=== PATIENT | female | born 1985 | race Caucasian/White ===

== ENCOUNTER 2024-10-11 07:36 | Outpatient (OUT) | payer BC, SELFPAY ==
--- NOTE | 2024-10-11 07:40 | MR_ITS ---
[facility] [id number] Patient Name: DEA BURGESS MRN: [id number] date: 1985 Sex: F Assigned Patient Location: MRI Current Patient Location: LAB Accession/Order Number: [id number] Exam Date: 10/11/2024 10:31 Report Date: 10/11/2024 10:35 At the request of: CARON LIRIANO DO Procedure: MR lumbar spine wo con EXAMINATION: MRI LUMBAR SPINE WITHOUT IV CONTRAST CLINICAL HISTORY: Back pain since 2005 radiating into right leg and foot. COMPARISON: None TECHNIQUE: Multiecho imaging was performed in the sagittal and axial planes without contrast administration. FINDINGS: Vertebral body heights appear maintained. No bone marrow edema. Spinal cord terminates in normal position without abnormal cord signal. No paraspinal mass. Visualized retroperitoneum demonstrates no acute findings. There appears to be follicular changes involving the visualized ovaries. At L1-L2: No posterior disc pathology. No neural canal or foraminal stenosis. At L2-L3: Mild diffuse broad-based disc bulge with facet joint degenerative changes and ligamentum flavum hypertrophy causing mild canal and bilateral neural foraminal stenosis. At L3-L4: Mild diffuse broad-based disc bulge is present with ligamentum flavum hypertrophy and facet joint degenerative changes causing mild canal and bilateral neural foraminal stenosis. At L4-L5: Diffuse broad-based disc bulge is present with central protrusion type disc herniation present as well as ligamentum flavum hypertrophy and facet joint degenerative changes causing severe canal and mild bilateral neural foraminal stenosis. At L5-S1: No posterior disc pathology. No neural canal or foraminal stenosis. MR/MR lumbar spine wo con IMPRESSION: Multilevel degenerative disc disease as described above, worst at L4-L5 with central protrusion type disc herniation present causing severe canal stenosis. Impression dictated by: Giuliano Alfred Jr., D.O. 10/11/2024 10:35 AM Dictation Location: [facility]OSPITALKeyOn Communications Holdings Electronically authenticated by: [id number] Y Date: 10/11/2024 10:35
== END 2024-10-11 07:37 | disposition home or self-care (01) ==
LOC: MRI 07:36
PROVIDERS: PCP Family Medicine; Visit Provider Family Medicine
DX: Z00.01 Encounter for general adult medical examination with abnormal findings (principal); M54.16 Radiculopathy, lumbar region; M51.369 Other intervertebral disc degeneration, lumbar region without mention of lumbar back pain or lower extremity pain; M51.26 Other intervertebral disc displacement, lumbar region
CPT/HCPCS: 36415; 72148; 80053; 80061; 82306; 82607; 82728; 82746; 83036; 83540; 83550; 83735; 84439; 84443; 84481; 85025; 86038

== ENCOUNTER 2024-10-11 08:29 | Outpatient (OUT) | payer BC, SELFPAY ==
[2024-10-11 09:26] LABS: Basophils Absolute Auto 0.1 10^3/uL (0.0-0.1); Basophils Percent Auto 0.8 % (0.2-2.0); Eosinophils Absolute Auto 0.3 10^3/uL (0.0-0.7); Eosinophils Percent Auto 4.5 % (0.9-7.0); Hematocrit 42.7 % (36.0-48.0); Hemoglobin 14.4 g/dL (12.0-16.0); Immature Granulocytes Abs Auto 0.03 10^3/uL (0.00-0.03); Immature Granulocytes Pct Auto 0.4 % (0.0-0.5); Lymphocytes Absolute Auto 2.3 10^3/uL (1.2-3.8); Lymphocytes Percent Auto 31.5 % (20.5-60.0); Mean Corpuscular HGB Conc 33.7 g/dL (29.9-35.2); Mean Corpuscular Hemoglobin 31.1 pg (26.7-34.0); Mean Corpuscular Volume 92.2 fL (81.0-99.0); Mean Platelet Volume 10.5 fL (9.5-13.5); Monocytes Absolute Auto 0.4 10^3/uL (0.3-0.8); Monocytes Percent Auto 5.7 % (1.7-12.0); Neutrophils Absolute Auto 4.2 10^3/uL (1.4-6.5); Neutrophils Percent Auto 57.1 % (43.0-75.0); Platelet Count 184 10^3/uL (150-450); Red Blood Count 4.63 10^6/uL (4.20-5.40); Red Cell Distribution Width 12.3 % (11.0-15.0); White Blood Count 7.3 10^3/uL (4.0-11.0)
[2024-10-11 09:56] LABS: Estimated Average Glucose 103 mg/dL; Glycohemoglobin A1C 5.2 % (4.5-6.2)
[2024-10-11 10:00] LABS: Percent Iron Saturation 39.5 %
[2024-10-11 10:07] LABS: Alanine Aminotransferase 61 U/L (14-59); Albumin Globulin Ratio 0.9; Albumin Level 3.5 g/dL (3.4-5.0); Alkaline Phosphatase 64 U/L (46-116); Aspartate Amino Transferase 45 U/L (15-37); Bilirubin Total 0.4 mg/dL (0.2-1.0); Calcium 8.7 mg/dL (8.5-10.1); Carbon Dioxide 26.8 mmol/L (21.0-32.0); Chloride 104 mmol/L (98-107); Chol HDL Ratio 2.1; Cholesterol 137 mg/dL (<=200); Estimated GFR (African America >60 (>=60 mL/min/1.73m^2); Estimated GFR (Non-African Ame >60 (>=60 mL/min/1.73m^2); Free T3 2.43 pg/mL (2.18-3.98); Globulin 3.8 g/dL; Glucose 92 mg/dL (74-106); HDL Cholesterol 66 mg/dL (40-60); Potassium 3.8 mmol/L (3.5-5.1); Sodium 138 mmol/L (136-145); Thyroid Stimulating Hormone 4.179 uIU/mL (0.358-3.740); Total Protein 7.3 g/dL (6.4-8.2); Triglycerides 48 mg/dL (<=150); VLDL CHOLESTEROL 9.6 mg/dL
[2024-10-11 10:26] LABS: Free T4 0.82 ng/dL (0.76-1.46)
[2024-10-12 06:12] LABS: Vitamin B12 342 pg/mL (232-1245)
[2024-10-12 11:13] LABS: ANA Direct Negative (Negative)
== END 2024-10-11 08:30 | disposition home or self-care (01) ==
LOC: LAB 08:30
PROVIDERS: PCP Family Medicine; Visit Provider Family Medicine
DX: Z00.01 Encounter for general adult medical examination with abnormal findings (principal)
CPT/HCPCS: 36415; 80053; 80061; 80074; 82306; 82607; 82728; 82746; 83036; 83540; 83550; 83735; 84439; 84443; 84481; 85025; 86038; 87389; 87522

== ENCOUNTER 2024-10-18 09:02 | Outpatient (OUT) | payer BC, SELFPAY ==
[2024-10-19 05:07] LABS: HIV Ab/p24 Ag Screen Non Reactive (Non Reactive)
[2024-10-20 22:07] LABS: HBsAg Screen Negative (Negative); HCV Ab Reactive (Non Reactive); HCV RNA (International Units) 14800000 IU/mL (.); Hep A Ab, IgM Negative (Negative); Hep B Core Ab, IgM Negative (Negative)
== END 2024-10-18 09:03 | disposition home or self-care (01) ==
LOC: LAB 09:02
PROVIDERS: PCP Family Medicine; Visit Provider Family Medicine
DX: Z00.01 Encounter for general adult medical examination with abnormal findings (principal)
CPT/HCPCS: 36415; 80074; 87389; 87522

== ENCOUNTER 2025-05-06 09:08 | Outpatient (OUT) | payer BC, SELFPAY ==
--- OUTSIDE RECORDS SUMMARY | 2020-04-24 05:15 | XMS_ITS | Continuity of Care Document ---
Author Organization [facility] Address [address] [place] [address] Phone Care Team Providers Care Automatic Coil Machine Operator Name Role Phone Martin Josue Unavailable Unavailable Procedures Procedure Date Covid Testing [facility] Advance Directives Directive Yes / No Effective Date File Name No Information Encounters Encounter Description Practice Location Reason(s) For Visit Diagnoses Date Provider Providers Copied on Encounter [facility], [address], [place], [id number], [place] tel:[phone] COVID [facility] No Information Laxmi SWANN Martin. [address], [place], [id number], [place]. tel:[phone] Family History Family Member Type Diagnosis Age At Onset No Information Payers Payer name Insurance type Covered constitution party ID Authoriza tion(s) No Information Social History Type Description Quantity Date Captured Comments Sex Female Smoking Status No Information Sexual Orientation Straight or heterosexual Gender Identity Female Chief Complaint And Reason For Visit No Information Reason For Referral Reason For Referral No Information History Of Present Illness Encounter Date Complaint History Of Prese nt Illness No Information Functional Status Date Functional Assessmen t No Information Instructions Date Instruction Additional Infor mation No Information Assessments Type Assessment Date No Information Patient Care Teams Name Effective Dates (start - stop) Status Members No Information
--- OUTSIDE RECORDS SUMMARY | 2024-09-09 05:00 | XMS_ITS ---
Author Organization [facility] [place] Address [address] [place] [address] Care Team Providers Care Image Consultant Name Role Phone Omer Melchor Primary Care Provider REASON FOR VISIT establish care Encounters Encounter Location Date Provider Diagnosis [facility] [address] [place] [address] 09/09/2024 Omer Melchor Plan Of Treatment Next Appt Details Provider Name:Shanice Fritz Bandar llamas, 05/10/2025 10:15:00 AM, [address] [place], [address], Progress Notes * Aundrea BURGESSDOB: [birth year] (39 yo F)Acc No.[id number]:09/09/2024 UNLOCKED PROGRESS NOTE New Patient Patient: Joaquín Aundrea FOSTER :?Omer Melchor DODOB:1985???Age:39 Y ???Sex:FemaleDate:09/09/2024Phone:[phone]:[address] [place], [place]-[address] Subjective: * Chief Complaints: * 1 . Establish care. * Medical History: Objective: * Vitals: Assessment: Plan: * Treatment: * * Electronic signature of Omer Melchor DO, [id number] on 05/06/2025 at 09:11 AM ESTSign off status: PendingVisit Status:?R/S (Rescheduled) * Provider: Ashli Melchor, DO Date: 0 09/09/2024 Generated for Printing/Faxing/eTransmitting on:?05/06/2025 09:11 AM EST
--- OUTSIDE RECORDS SUMMARY | 2024-09-16 03:45 | XMS_ITS ---
Author Organization [facility] [place] Address [address] [place] [address] Care Team Providers Care Complaint Investigations Officer Name Role Phone Omer Melchor Primary Care Provider REASON FOR VISIT New patient Encounters Encounter Location Date Provider Diagnosis [facility] [address] [place] [address] 09/16/2024 Omer Melchor Plan Of Treatment Next Appt Details Provider Name:Shanice Fritz Bandar llamas, 05/10/2025 10:15:00 AM, [address] [place], [address], Progress Notes * Aundrea BURGESSDOB: [birth year] (39 yo F)Acc No.[id number]:09/16/2024 UNLOCKED PROGRESS NOTE New Patient Patient: Joaquín Aundrea FOSTER :?Omer Melchor DODOB:1985???Age:39 Y ???Sex:FemaleDate:09/16/2024Phone:[phone]:[address] [place], [place] Subjective: * Chief Complaints: * 1 . New patient. * Medical History: Objective: * Vitals: Assessment: Plan: * Treatment: * * Electronic signature of Omer Melchor DO, [id number] on 05/06/2025 at 09:11 AM ESTSign off status: PendingVisit Status:?R/S (Rescheduled) * Provider: Ashli Melchor, DO Date: 0 09/16/2024 Generated for Printing/Faxing/eTransmitting on:?05/06/2025 09:11 AM EST
--- OUTSIDE RECORDS SUMMARY | 2025-04-22 03:45 | XMS_ITS ---
Author Organization The [facility] in [place] Address [address] [place] [address] Care Team Providers Care Case Management Social Worker Name Role Phone Omer Melchor Primary Care Provider [phone] Allergies Allergen (clinical drug ingredient) Drug/Non Drug Allergy documented on EMR Reaction Allergy Type Onset Date Status bandage adhesive (uncoded)UnknownAllergyActive Reason For Referral Reason L DDD lumbar herni ated disc lumbar spinal stenosis Diagnosis 1 Spinal stenosis, lum bar region without neurogenic claudication (M48.061) Referral Organization [facility] Referring Provider First Name Omer Referring Provider Last Name Ruiz Referring Provider Speciality Family Med juani Referred Provider [facility] Referred Provider Specialty Neurosurgery General Notes Omer Melchor 09:13:54 PM >please call pt for appt Referral Priority Routine REASON FOR VISIT -6 Month Follow Up- Medications Medication SIG (Take, Route, Frequency, Duration) Notes Start Date End Date Status Albuterol Sulfate HFA 108 (9 0 Base) MCG/ACT INHALE 1 PUFF BY MOUTH EVERY 4 HOURS NEEDED; Duration: 33 days ActiveEpclusa 400-100 MGOralActiveFolic Acid 1 MG1 tablet Orally Once a day 5ActiveVitamin D3 125 MCG (5000 UT)1 capsule Orally Once a day; Duration: 90 days5Active Social History Tobacco Use: Social History Observation Description Date Details (start date - stop date) Current Smoker NA - NA Tobacco Control (Standard) Question Answer Notes Tobacco use: Current smoker Problems Problem Type SNOMED Code ICD Code Onset Dates Problem Status W/U Status Risk Notes Problem Obesity (555702319) Obesity, unspecified (E66.9) ActiveconfirmedProblemBody mass index 30+ - obesity (726542776)Body mass index [BMI] 30.0-30.9, adult (Z68.30)ActiveconfirmedProblemMild major depression, single episode (40654939)Major depressive disorder, single episode, mild (F32.0) ActiveconfirmedProblemAcute hepatitis C (681916255)Acute hepatitis C without hepatic coma (B17.10)ActiveconfirmedProblemSpinal stenosis of lumbar region (75351186)Spinal stenosis, lumbar region without neurogenic claudication (M48.061)Activeconfirmed Vital Signs Blood pressure systolic 112 mm Hg 04/22/20 25 Blood pressure diastolic 82 mm Hg 025 Heart Rate 69 /min 04/22/2025 Respiratory Rate 16 /min 04/22/2025 Height 64 in 04/22/2025 Weight 179.4 lbs 04/22/2025 BMI 30.79 kg/m2 04/22/2025 Oximetry 98 % 04/22/2025 Encounters Encounter Location Date Provider Diagnosis [address] [address] 04/22/2025 Omer Melchor Vitamin D deficiency , unspecified E55.9 ; Deficiency of other specified B group vitamins E53.8 ; Chronic fatigue, unspecified R53.82 ; Obesity, unspecified E66.9 ; Body mass index [BMI] 30.0-30.9, adult Z68.30 ; Major depressive disorder, single episode, mild F32.0 ; Other specified abnormal findings of blood chemistry R79.89 ; Acute hepatitis C without hepatic coma B17.10 ; Encounter for screening mammogram for malignant neoplasm of breast Z12.31 ; Melanocytic nevi, unspecified D22.9 and Spinal stenosis, lumbar region without neurogenic claudication M48.061 Assessments Encounter Date Diagnosis (ICD Code) Assessment Notes Treatment Notes Treatment Clinical Notes Section Notes 04/22/2025 Vitamin D deficiency, unspecifie d (ICD-10 - E55.9) monior vit D change to vit D 5000 IU daily instead of qweek per pt request 04/22/2025Deficiency of other specified B group vitamins (ICD-10 - E53.8) monitor lab stable 04/22/2025hronic fatigue, unspecified (ICD-10 - R53.82)labs - tx if abnormal 04/22/2025Obesity, unspecified (ICD-10 - E66.9)diet/rrfgykeh08/14/2025ody mass index [BMI] 30.0-30.9, adult (ICD-10 - Z68.30)04/22/2025Major depressive disorder, single episode, mild (ICD-10 - F32.0) rec counseling rec wellbutrin - pt to hold off 04/22/2025Other specified abnormal findings of blood chemistry (ICD-10 - R79.89) monitor thyroid labs - hold on med if FT 3/4 cmfjwt7504/22/2025ute hepatitis C without hepatic coma (ICD-10 - B17.10) f/u GI as directed [place] [facility] [place]25Encounter for screening mammogram for malignant neoplasm of breast (ICD-10 - Z12.31)04/22/2025Melanocytic nevi, unspecified (ICD-10 - D22.9)monitor as ngcpgd0704/22/2025Spinal stenosis, lumbar region without neurogenic claudication (ICD-10 - M48.061) refer for eval and tx ?PT/injections/surgery 04/22/2025Otherpt to make appt with dr lincoln for pap Plan Of Treatment Medication Medication Name Sig Start Date Stop Date Notes Vitamin D (Ergocalciferol) 1.25 MG (46344 UT) 1 capsul e Orally qweek 10/20/2024 Epclusa 400-100 MGOralFolic Acid 1 MG1 tablet Orally Once a day10/20/2024Vitamin D3 125 MCG (5000 UT)1 capsule Orally Once a day; Duration: 90 days04/24/2025 Treatment Notes Assessment Notes Vitamin D deficiency, unspecified monior vit D change to vit D 5000 IU daily instead of qweek per pt request Deficiency of other specifie d B group vitamins monitor lab stable Chronic fatigue, unspecified labs - tx i f abnormal Obesity, unspecified diet/exercise Major depressive disorder, s dung episode, mild rec counseling rec wellbutrin - pt to hold off Other specified abnormal fin dings of blood chemistry monitor thyroid labs - hold on med if FT 3/4 normal Acute hepatitis C without hepatic coma f/u GI as directed get [place] [facility] [place] Melanocytic nevi, unspecified monitor as benign Spinal stenosis, lumbar lindy on without neurogenic claudication refer for eval and tx ?PT/injections/surgery Other pt to make appt with dr lincoln for pap Pending Test Test Name Order Date DHEA-S 04/22/2025 TESTOSTERONE, FREE (INCLUDES FREE,TOTAL and FTI) 04/22/2025 FSH, LH, and PROLACTIN 04/22/2025 PROGESTERONE 04/22/2025 SEX HORMONE BINDING GLOBULIN 04/22/2025 TSH 04/22/2025 VITAMIN D, 25 LEVEL (TOTAL) 04/22/2025 CORTISOL, BLOOD 04/22/2025 ESTRADIOL (E2)* 04/22/2025 VITAMIN B12 LEVEL AND FOLATE (FOLIC ACID ) 04/22/2025 MAMM SCREEN BILAT EVERARDO 3D GLOBAL* 2024 Referrals Referral Date Details 04/24/2025 04/24/2025, L DDD lumbar herniated disc lumbar spinal stenosis, [facility] Next Appt Details Follow Up: 6 Months, Reason: wellness Provider Name:Shanice llamas, 05/10/2025 10:15:00 AM, [address] [place], [address], Progress Notes * Lance BURGESSB: 985 (39 yo F)Acc No.[id number]:04/22/2025 Established Patient: Joaqíun AQUINOAundrea NICHOLAS :?ANH CowartOB:1985???Age:39 Y ???Sex:FemaleDate:04/22/2025Phone:[phone]:[address] [place], [id number] In:08:27 AM ESTCheck Out:09:26 AM EST Subjective: * Chief Complaints: * - 6 Month Follow Up- * HPI: ???General:?patient presents today for 6 month follow up. patient states she is currently being treated for hepc with Epclusa and has been on this for 3 weeks now. she states [facility] prescribed it.?rahelo states she wants to see a new ortho doc as she feels she has had nothing but trouble with their office. she wants to see about doing a daily vitamin D instead of once a week. she states she has been dealing with a lot of fatigue and she feels like she has been struggling with depression lately. she states she has some concerns with her bp as some days she gets very lightheaded and fatigued and cannot work. patient states she has been having issues with her foot as well. she states she has not had a pap or sailaja done in [facility]. she states she has been having issues with her skin on her faceand is wanting to see a derm. patient states she has some concerning moles she wants looked at too.she also states with being on the epclusa she is wondering what she can take for her headaches.-mv seeing GI in [place] for Hep C? on med for 12 weeks occ EAGLE's poor sleep - started after Hep C tx +fatigue +lack of interest and motivation no HI/SI not checking BP at home +more lightheaded lately - ?comes with anxiety no positional changes per pt 2 episodes of vertigo in past too per pt [place] [facility] [place] get [place]/off b/l chest pains at times no palp +facial acne +upper back moles x 2 per pt - growing per pt +LBP occ R LE tingling seeing ortho - [facility] - wants to see ortho in [place] pt thinks the vit D wears off after a few days send vit D 5000 IU daily to [facility] 10/2024 labs revivewed - A1c 5.2, iron/ferritin normal, vit D 28(L), TC 137, TG 48, HDL 66, LDL 62, ALT 61, AST 45, bmp normal, TSH 4.179(H), FT 3/4 normal, folate 7(L) last pap ~7 years ago? lexapro and prozac didnt help per pt with her mood 10/2024 MRI L spine +DDD and L 5 disc protrusion with severe stenosis. * ROS: ???General/Constitutional:?Significant change in weight?denies.?Exercise Intolerance?denies.?Night sweats?denies.?Fever?denies.?Eyes:?Dry eyes?Denies.?Vision changes?denies.?ENMT:?Sore Throat?denies.?Nose Bleeds?denies.?Difficulty hearing?denies.?Ear pain?denies.?Nose/sinus problems?denies.?Snoring?denies.?Bleeding gums?denies.?Dry mouth?denies.?Mouth ulcers denies.?Oral abnormalities?denies.?Teeth problems?denies.?Cardiovascular:?Shortness of Breath w/Walking?denies.?Shortness of Breath w/lying flat?denies.?Arm pain on exertion?denies.?Chest pain?admits.?Heart murmur?denies.?Palpitations?denies.?Respiratory:?Coughing up blood?denies.?Cough?denies.?Shortness of breath?denies.?Wheezing?denies.?Gastrointestinal:?Change in appetite?denies.?Vomiting blood?denies.?Abdominal pain?denies.?Constipation?denies.?Diarrhea?denies.?Vomiting?denies.?Genitourinary:?Dysuria/Increased Frequency?denies.?Hematuria?den ies.?Incontinence?denies.?Difficulty urinating?denies.?Musculoskeletal:?Swelling in the extremities?denies.?Arthralgias/jointpain?Denies.?Back pain?admits.?Weakness of muscles?denies.?Muscle aches?admits.?Skin:?Jaundice?Denies.?Mole(s)?admits.?Rash?denies.?Neurologic:?Dizziness?denies.?Loss of consciousness?denies.&# 160;Numbness?denies.?Weakness?denies.?Headache?admits.?Seizures?denies.?Psychiatric:?Alcohol abuse?denies.?Feeling safe in relationship&#16 0;denies.?Depression?admits.?Anxiety?denies.?Sleep Disturbances?admits.?Endocrine:?Fatigue?admits.?Hematologic/Lymphatic:?Swollen Glands?denies.?Bruising?denies.?Allergy/Immunology:?Runny nose?denies.?Sinus pressure?denies.?Frequent sneezing?denies.?Hives?denies.?Itching?denies.? * Active Problem List M54.16 Radiculopathy, lumba r region Modified On:09/23/2024/U Status:qqrctpbegG44.3Overweight Modified On:09/23/2024/ Status:bcawbatbvL89.11Other psychoactive substance abuse, in remission Modified On:09/23/2024/U Status:kzxdemrnlY13.1Major depressive disorder, recurrent, moderate Modified On:09/23/2024 Status:phkmncfuoO62.20Mild intermittent asthma, uncomplicated Modified On:09/23/2024 Status:advolozuaS20.9Vitamin D deficiency, unspecified Modified On:10/20/2024 Status:hvftgbvusO94.26Other intervertebral disc displacement, lumbar region Modified On:10/20/2024 Status:rztjvepwzM93.062Spinal stenosis, lumbar region with neurogenic claudication Modified On:10/20/2024 Status:dgmolsbidF05.2Chronic viral hepatitis C Modified On:10/25/2024 Status:pwrshckkbR31.82Chronic fatigue, unspecified Modified On:10/25/2024 Status:wcdbjojzoV14.9Obesity, unspecified Modified On:04/24/2025 Status:uhhxyyiaiR99.30Body mass index [BMI] 30.0-30.9, adult Modified On:04/24/2025 Status:zfhpcgytwL88.0Major depressive disorder, single episode, mild Modified On:04/24/2025 Status:tlnceaxkrM23.10Acute hepatitis C without hepatic coma Modified On:04/24/2025 Status:gnmehmctrP40.061Spinal stenosis, lumbar region without neurogenic claudication Modified On:04/24/2025 Status:confirmed * Medical History: * Surgical History: a ppendectomy 1998tonsillectomy * Hospitalization/Major Diagno stic Procedure: ~ 2021 for SI * Family History: F ather: alive. M other: alive, hypertension/lipids. B rother(s): alive. pcos,breast,cervical, ovarian cancer, hypertnesion, hyperlipidemia runs on moms side. * Social History: ???Tobacco Use:?Tobacco Control (Standard)?Tobacco use:?Current smoker * Medications: T akingAlbuterol Sulfate HFA 108 (90 Base) MCG/ACT Aerosol Solution INHALE 1 PUFF BY MOUTH EVERY 4 HOURS NEEDED Epclusa(Sofosbuvir-Velpatasvir) 400-100 MG Tablet Oral Folic Acid 1 MG Tablet 1 tablet Orally Once a day Vitamin D (Ergocalciferol) 1.25 MG (10741 UT) Capsule 1 capsule Orally qweek Medication List reviewed and reconciled with the patientTaking Albuterol Sulfate HFA 108 (90 Base) MCG/ACT Aerosol Solution INHALE 1 PUFF BY MOUTH EVERY 4 HOURS NEEDED Taking Epclusa(Sofosbuvir- Velpatasvir) 400-100 MG Tablet Oral Taking Folic Acid 1 MG Tablet 1 tablet Orally Once a day Taking Vitamin D (Ergocalciferol) 1.25 MG (11059 UT) Capsule 1 capsule Orally qweek Medication List reviewed and reconciled with the patient * Allergies: b andage adhesiveno[Allergies Verified] Objective: * Vitals: W t:179.4lbs, Ht: 64 in, BP:112/82mm Hg, HR:69/min, RR:16/min, BMI:30.79Index, Oxygen sat %:98%, Ht-cm: 162.56 cm, Wt-k.38 kg. * Examination: ???General Examination: ?GENERAL APPEARANCE:?healthy Appearing , well nourished , well developed Level of distress: NAD,?ambulating normally, obese.?ENMT:?EACs clear, TMs clear, no hearing loss, no lesions on external ears, nares patent, nasal passages clear, no sinus tenderness, no nasal discharge, no mouth or lip ulcers, no bleeding gums, moist mucous membranes, no erythema, no exudates.?HEAD:?normocephalic, atraumatic.?EYES:?non-injected, no discharge, no pallor, PERRLA , EOMI, sclera non- icteric, peripheral vision grossly intact, acuity grossly intact.?LUNGS:?no dyspnea, breath sounds normal , good air movement, CTA except as noted, no wheezing, no rales/crackles, no rhonchi.?CARDIO:?not displaced, RRR, S1, S2 normal , no murmurs, rubs, gallops , no carotid bruits, normal throughout.?ABDOMEN:?normal bowel sounds , soft, non tender, not distended, no guarding, no rebound tenderness, no masses, no CVA tenderness, liver non tender, no hepatomegaly.?BACK:?normal curvature.?MUSCULOSKELETAL:?normal motor strength, normal tone, normal movement of all extremities, no bony abnormalities, no contractures, no malalignment, +lumbar painwith palpation, +limited ROM L spine, - SLR b/l LE.?SKIN:?no rash, +mid T areas with a few raised benign looking nevi, no ulcer, no abnormal nevi, no induration, no nodules, good turgor, no jaundice.?EXTREMITIES:? No edema.?NEUROLOGIC:?normal gait, normal station, cranial nerves grossly intact, sensation grossly intact, no tremor.?PSYCH:?judgement and insight good, active and alert, normal mood, normal affect.?NECK/THYROID:?Neck supple, trachea midline, no masses, FROM, no cervical LAD, no enlargement, non-tender, no nodules.? Assessment: * Assessment: 1.?Vitamin D deficiency, unspecified - E55.9 (Primary)???2.?Deficiency of other specified B group vitamins - E53.8???3.?Chronic fatigue, unspecified - R53. 82???4.?Obesity, unspecified - E66.9???5.?Body mass index [BMI] 30.0-30.9, adult - Z68.30???6.?Major depressive disorder, single episode, mild - F32.0???7.?Other specified abnormal findings of blood chemistry - R79.89 ??8.?Acute hepatitis C without hepatic coma - B17.10???9.?Encounter for screening mammogram for malignant neoplasm of breast - Z12.31???10.?Melanocytic nevi, unspecified - D22.9???11.?Spinal stenosis, lumbar region without neurogenic claudication - M48.061??? Plan: * Treatment: Start Vitamin D3 Capsule, 125 MCG (5000 UT), 1 capsule, Orally, Once a day, 90 days, 90 Capsule, Refills 3;?Stop Vitamin D (Ergocalciferol) Capsule, 1.25 MG (44229 UT), 1 capsule, Orally, qweek. ?LAB: VITAMIN D, 25 LEVEL (TOTAL) Notes: monior vit D change to vit D 5000 IU daily instead of qweek per pt request ??2.?Deficiency of other specified B group vitamins? Continue Folic Acid Tablet, 1 MG, 1 tablet, Orally, Once a day.?LAB: VITAMIN B12 LEVEL AND FOLATE (FOLIC ACID) Notes: monitor lab stable ??3.?Chronic fatigue, unspecified?LAB: DHEA-S ?LAB: TESTOSTERONE, FREE (INCLUDES FREE,TOTAL and FTI) ?LAB: FSH, LH, and PROLACTIN ?LAB: PROGESTERONE ?LAB: SEX HORMONE BINDING GLOBULIN ?LAB: TSH ?LAB: CORTISOL, BLOOD ?LAB: ESTRADIOL (E2)* Notes: labs - tx if abnormal ??4.?Obesity, unspecified? Notes: diet/exercise ??5.?Major depressive disorder, single episode, mild? Notes: rec counseling rec wellbutrin - pt to hold off ??6.?Other specified abnormal findings of blood chemistry? Notes: monitor thyroid labs - hold on med if FT 3/4 normal ??7.?Acute hepatitis C without hepatic coma? Continue Epclusa Tablet, 400-100 MG, Oral.?? Notes: f/u GI as directed [place] [facility] [place]8.?Encounter for screening mammogram for malignant neoplasm of breast?Imaging: MAMM SCREEN BILAT EVERARDO 3D GLOBAL Omer Melchor 04/24/2025 09:05:31 PM EST >Please call patient to schedule 9.?Melanocytic nevi, unspecified? Notes: monitor as benign ??10.?Spinal stenosis, lumbar region without neurogenic claudication? Notes: refer for eval and tx ?PT/injections/surgery? Referral To:[facility]??Neurosurgery ?Reason:L DDD lumbar herniated disc lumbar spinal stenosis 11.?Others? Notes: pt to make appt with dr lincoln for pap?? * Procedure Codes: 3 079F DIAST BP 80-89 MM [id number] SYST BP LT 130 MM HG * Follow Up: 6 Months (Reason: wellness) * * ign off status: CompletedVisit Status:?CHK (Check Out) true * Provider: Ashli Melchor DO Date: 06/22/2024 Generated for Printing/Faxing/eTransmitting on:?05/06/2025 09:12 AM EST History and Physical Notes * Examination CategorySub-CategoryDetailNotesCategory NotesGeneral ExaminationGENERAL APPEARANCE:healthy Appearing , well nourished , well developed Level of distress: NAD, ambulating normally, obeseEYES:non-injected, no discharge, no pallor, PERRLA , EOMI, sclera non-icteric, peripheral vision grosslyintact, acuity grossly intactCARDIO:not displaced, RRR, S1, S2 normal , no murmurs, rubs, gallops , no carotid bruits, normal throughoutLUNGS:no dyspnea, breath sounds normal , good air movement, CTA except as noted, no wheezing, no rales/crackles, no rhonchiABDOMEN:normal bowel sounds , soft, non tender, not distended, no guarding, no rebound tenderness, no masses, no CVA tenderness, liver non tender, no hepatomegalyNEUROLOGIC:normal gait, normal station, cranial nerves grossly intact, sensation grossly intact, no tremorSKIN:no rash, +mid T areas with a few raised benign looking nevi, no ulcer, no abnormal nevi, no induration, no nodules, good turgor, no jaundiceEXTREMITIES:No edemaBACK:normal curvatureMUSCULOSKELETAL:normal motor strength, normal tone, normal movement of all extremities, no bony abnormalities, no contractures, no malalignment, +lumbar pain with palpation, +limited ROM L spine, - SLR b/l LEPSYCH:judgement and insight good, active and alert, normal mood, normal affectENMT:EACs clear, TMs clear, no hearing loss, no lesions on external ears, nares patent, nasal passages clear, no sinus tenderness, no nasal discharge, no mouth or lip ulcers, no bleeding gums, moist mucous membranes, no erythema, no exudatesHEAD: normocephalic, atraumaticNECK/THYROID:Neck supple, trachea midline, no masses, FROM, no cervical LAD, no enlargement, non-tender, no nodules Consultation Request Notes Referral Date Referring Provider Referred Provider Not es 04/24/2025 Omer Melchor Dale L DDD lumb ar herniated disc lumbar spinal stenosis
--- OUTSIDE RECORDS SUMMARY | 2025-04-25 04:30 | XMS_ITS ---
Author Organization [facility] in [place] Address [address] [place] [address] Care Team Providers Care Electrical & Instrumentation Supervisor Name Role Phone Omer Melchor Primary Care Provider [phone] Shanice Hooker [phone] Allergies Allergen (clinical drug ingredient) Drug/Non Drug Allergy documented on EMR Reaction Allergy Type Onset Date Status bandage adhesive (uncoded)UnknownAllergyActive REASON FOR VISIT PAP - RESCHEDULED Medications Medication SIG (Take, Route, Frequency, Duration) Notes Start Date End Date Status Folic Acid 1 MG 1 tablet Orally Once a day 5ActiveVitamin D3 125 MCG (5000 UT)1 capsule Orally Once a day; Duration: 90 days5ActiveAlbuterol Sulfate HFA 108 (90 Base) MCG/ACT INHALE 1 PUFF BY MOUTH EVERY 4 HOURS NEEDED; Duration: 33 daysActiveEpclusa 400-100 MGOralActive Social History Tobacco Use: Social History Observation Description Date Details (start date - stop date) Current Smoker NA - NA Tobacco Control (Standard) Question Answer Notes Tobacco use: Current smoker Vital Signs Respiratory Rate 16 /min 04/25/2025 Height 64 in 04/25/2025 Encounters Encounter Location Date Provider Diagnosis [facility] [address] [place] [address] 04/25/2025 Shanice Hooker Plan Of Treatment Next Appt Details Provider Name:Shanice llamas, 05/10/2025 10:15:00 AM, [address] [place], [address], Progress Notes * Aundrea BURGESSDOB: [birth year] (39 yo F)Acc No.[id number]:04/25/2025 UNLOCKED PROGRESS NOTE Established Patient: Aundrea TAYLOR :?Shanice Hooker, MDDOB:1985???Age:39 Y ???Sex:FemaleDate:04/25/2025Phone:[phone]:[address], [address], [place], [id number]:Omer Fernandez In:09:34 AM ESTCheck Out:09:49 AM EST Subjective: * Chief Complaints: * 1 . PAP - RESCHEDULED. * Medical History: D epression, Anemia, Asthma, Pcos, hep C, h/o ETOH abuse, H/o drug abuse, Folic acid deficiency, L spinal stenosis, vit D def. * Surgical History: a ppendectomy 1997, tonsillectomy . * Hospitalization/Major Diagno stic Procedure: ~ 2021 for SI . * Family History: F ather: alive. M other: alive, hypertension/lipids. B rother(s): alive. pcos,breast,cervical, ovarian cancer, hypertnesion, hyperlipidemia runs on moms side. * Social History: ???Tobacco Use:?Tobacco Control (Standard)?Tobacco use:?Current smoker * Medications: T aking Albuterol Sulfate HFA 108 (90 Base) MCG/ACT Aerosol Solution INHALE 1 PUFF BY MOUTH EVERY 4 HOURS NEEDED , Taking Epclusa(Sofosbuvir-Velpatasvir) 400-100 MG Tablet Oral , Taking Folic Acid 1 MG Tablet 1 tablet Orally Once a day , Taking Vitamin D3 125 MCG (5000 UT) Capsule 1 capsule Orally Once a day , Medication List reviewed and reconciled with the patient * Allergies: B andage Adhesive. Objective: * Vitals: H t: 64 in, RR:16/min, Ht-cm: 162.56 cm. Assessment: Plan: * Treatment: * * Electronic signature of Shanice Hooker MD, [phone] on 05/06/2025 at 09:12 AM ESTSign off status: PendingVisit Status:?OFF CANC (OFFICE CANCEL) * Provider: Sena Hooker MD Date: 1 2024 Generated for Printing/Faxing/eTransmitting on:?05/06/2025 09:12 AM EST
--- OUTSIDE RECORDS SUMMARY | 2025-04-29 03:45 | XMS_ITS ---
Author Organization [facility] [place] Address [address] [place] [address] Care Team Providers Care Duplex Trimmer Name Role Phone Omer Melchor Primary Care Provider [phone] Provider, Radiology Unavailable [phone] Encounters Encounter Location Date Provider Diagnosis Radiology [facility] [address] [place] [address] 04/29/2025 Radiology Provider Plan Of Treatment Next Appt Details Provider Name:Shanice Portillo es, 05/10/2025 10:15:00 AM, [address] [place], [address], Progress Notes * Aundrea BURGESSDOB: [birth year] (39 yo F)Acc No.[id number]:04/29/2025 UNLOCKED PROGRESS NOTE Progress Note Patient: Joaquín NAVARROMIKHAIL Aundrea :?Radiology ProviderDOB:1985???Age:39 Y ???Sex:FemaleDate:04/29/2025External Visit ID:[id number]:[phone] Address:[facility] [place], [place]Nnn:Omer Melchor Subjective: * Chief Complaints: * * Active Problem List M54.16 Radiculopathy, lumba r region Modified On:09/23/2024W/U Status:fdkirlezuK59.3Overweight Modified On:09/23/2024 Status:uxzmrrlxuH58.11Other psychoactive substance abuse, in remission Modified On:09/23/2024 Status:meqxyyudvG16.1Major depressive disorder, recurrent, moderate Modified On:09/23/2024 Status:omgukhoqpE48.20Mild intermittent asthma, uncomplicated Modified On:09/23/2024 Status:rxsktjojzE85.9Vitamin D deficiency, unspecified Modified On:10/20/2024 Status:rxeatzvnnA54.26Other intervertebral disc displacement, lumbar region Modified On:10/20/2024 Status:endplzyipO22.062Spinal stenosis, lumbar region with neurogenic claudication Modified On:10/20/2024 Status:hcohqggnnC16.2Chronic viral hepatitis C Modified On:10/25/2024 Status:dwpzksrnnV03.82Chronic fatigue, unspecified Modified On:10/25/2024 Status:hpenskaygG23.9Obesity, unspecified Modified On:04/24/2025 Status:ynuwdamskC09.30Body mass index [BMI] 30.0-30.9, adult Modified On:04/24/2025 Status:cibxnywyoS64.0Major depressive disorder, single episode, mild Modified On:04/24/2025 Status:jnoqerwtgX01.10Acute hepatitis C without hepatic coma Modified On:04/24/2025 Status:xcayuujqsM28.061Spinal stenosis, lumbar region without neurogenic claudication Modified On:04/24/2025 Status:confirmed * Medical History: Objective: * Vitals: Assessment: Plan: * Treatment: * * Electronic signature of Radiology Provider on 05/06/2025 at 09:12 AM ESTSign off status: PendingVisit Status:?CANC (Cancelled) * Provider: R juaniology Provider Date: 06/29/2024 Generated for Printing/Faxing/eTransmitting on:?05/06/2025 09:12 AM EST
--- OUTSIDE RECORDS SUMMARY | 2025-05-06 09:12 | XMS_ITS | Clinical Summary ---
Author Organization [facility] tem Address [id number] [address] [place] [address] Care Team Providers Care Antenna Installer Name Role Phone Omer Melchor Lam SWANN Primary Care Provider Allergies No known active allergies Medications MedicationSigDispense QuantityRefillsLast FilledStart DateEnd DateStatus ergocalciferol (DRISDOL) 1,250 mcg (50,000 unit) capsule Take 1 capsule (50,000 Units total) by mouth once a week.5Active folic acid (FOLVITE) 1 mg tablet Take 1 tablet (1,000 mcg total) by mouth.5Active albuterol (PROVENTIL HFA;VENTOLIN HFA) 90 mcg/actuation inhaler Inhale 2 puffs.Active EPCLUSA 400-100 mg tablet 5Active ibuprofen (MOTRIN) 600 mg tablet Take 1 tablet (600 mg total) by mouth as needed.Active Encounters DateTypeDepartmentCare SekwYncrngzguzw99/15/2025 7:30 AM EDTOffice Visit [facility] [address] [place] [address] Wisam Adamson MD Herniated lumbar intervertebral disc (Primary Dx); Lumbar sneqdlrbdesep92/15/4754Rlimuo09/13/2025 10:40 AM EDT - 03/21/2025 11:59 PM EDTHospital Encounter [facility] [address] [place] [address] Low back pain, unspecified back pain laterality, unspecified chronicity, unspecified whether sciatica present Discharge Disposition: Home03/21/2025Telephone [facility] [address] [place] [address] Wisam Adamson MD 03/21/20250111Ikwqgn26/16/2025Orders Only [facility] [address] [place] [address] Mable Holliday Low back pain, unspecified back pain laterality, unspecified chronicity, unspecified whether sciatica present (Primary Dx)from Last 3 Months Social History Tobacco UseTypesPacks/DayYears UsedDateSmoking Tobacco: FormerCigarettes Smokeless Tobacco: Current Tobacco Cessation:Ready to Q uit: Not Asked; Counseling Given: Not Answered Hunger ScreeningAnswerDate RecordedWithin the past 12 months we worried whether our food would run out before we got money to buy more.Never True12/31/2024 Within the past 12 months the food we bought just didn't last and we didn't have money to get more.Never True12/31/2024CommentsNoSex and Gender InformationValueDate RecordedSex Assigned at BirthNot on fileLegal SexFemale 03/20/2023 3:52 PM EDTGender IdentityNot on fileSexual OrientationNot on file Last Filed Vital Signs Vital SignReadingTime TakenCommentsBlood Cjhusoqi91/7007 2:25 PM EDT Linym357112/31/2024 2:25 PM EHPLvotboqygnd28.9 ??C (98.4 ??F)12/31/2024 2:25 PM EDTRespiratory Tkvs938412/31/2024 2:25 PM EDTOxygen Vtzjsztvph664%12/31/2024 2:25 PM EDTInhaled Oxygen Concentration--Bkavcz33.2 kg (165 lb 12.8 oz)12/31/2024 2:25 PM BMKSkuhhx516.6 cm (5' 4 )12/31/2024 2:25 PM EDTBody Mass Index28.46 12/31/2024 2:25 PM EDT Plan of Treatment Health MaintenanceDue DateLast DoneCommentsTobacco Qojioxaeam80/17/1985 Depression Dkvymugpm94/17/1997Adult BMI Follow Up Plan2002DTaP,Tdap and Td Vaccines (1 - Tdap)2003Pap Smear2005Influenza Gaqptnj6702/07/2025dult BMI Udxbfjdwc23Tobacco Bwiiplosr56 Medical Devices Not on file Procedures Procedure NamePriorityDate/TimeAssociated DiagnosisCommentsXR SPINE LUMB BENDING ONLY 2-3 UPWFgfeegh05/13/2025 11:07 AM EDT Low back pain, unspecified back pain laterality, unspecified chronicity, unspecified whether sciatica present from Last 3 Months Results * X-ray spine lumbar flexion and extension only 2 to 3 views (03/21/2025 11:07 AM EDT)Anatomical RegionLateralityModalityMSK, Neuro, Spine, L-spineN/A Computed RadiographySpecimen (Source)Anatomical Location / Laterality Collection Method / VolumeCollection TimeReceived Time03/21/2025 12:56 PM EDT Narrative 03/21/2025 12:57 PM EDT EXAM: XR SPINE LUMB BENDING ONLY 2-3 VWS INDICATION: Pain COMPARISON: None TECHNIQUE: Flexion-extension views of the lumbar spine FINDINGS/IMPRESSION: Mild anterior wedging of T11, age indeterminate. Correlate for point tenderness. If there is high suspicion for acute compression fracture MRI of the thoracic spine can be obtained. Otherwise, remaining Vertebral body heights, densities, and alignment are normal. No significant shift on flexion or extension views. Degenerative changes better characterized on recent MRI of the lumbar spine 10/12/2019 THIS REPORT CONTAINS A SIGNIFICANT RESULT AND/OR RECOMMENDATION, WHICH REQUIRES THE ATTENTION OF THE LICENSED CAREGIVER RESPONSIBLE FOR THIS PATIENT. THEREFORE, I SPECIFICALLY DESIGNATED THIS REPORT TO BE TELEPHONED BY THE RADIOLOGY DEPARTMENT. FINDINGS WERE INSTRUCTED TO BE CALLED TO THE CLINICAL SERVICE ON 03/21/2025 12:57 PM Finalized by Sage Smalls on 03/21/2025 12:57 PM Procedure Note Sage Smalls MD - 03/21/2025 EXAM: XR SPINE LUMB BENDING ONLY 2-3 VWS INDICATION: Pain COMPARISON: None TECHNIQUE: Flexion-extension views of the lumbar spine FINDINGS/IMPRESSION: Mild anterior wedging of T11, age indeterminate. Correlate for pointtenderness. If there is high suspicion for acute compression fracture MRIof the thoracic spine can be obtained. Otherwise, remaining Vertebral body heights, densities, and alignment arenormal. No significant shift on flexion or extension views. Degenerativechanges better characterized on recent MRI of the lumbar spine 10/12/2019 THIS REPORT CONTAINS A SIGNIFICANT RESULT AND/OR RECOMMENDATION, WHICHREQUIRES THE ATTENTION OF THE LICENSED CAREGIVER RESPONSIBLE FOR THISPATIENT. THEREFORE, I SPECIFICALLY DESIGNATED THIS REPORT TO BE TELEPHONED BY THE RADIOLOGY DEPARTMENT. FINDINGS WERE INSTRUCTED TO BE CALLED TO THE CLINICAL SERVICE ON03/21/2025 12:57 PM Finalized by Sage Smalls on 03/21/2025 12:57 PM Authorizing ProviderResult TypeResult StatusPanora [facility] ORDERABLESFinal Result from Last 3 Months Insurance Care Teams Team MemberRelationshipSpecialtyStart DateEnd Date Omer Melchor DO [address] [place] [address] PCP - GeneralFamily Xbrjmudi30/13/25
--- OUTSIDE RECORDS SUMMARY | 2025-05-06 09:12 | XMS_ITS | Clinical Summary ---
Demographics Address [address] [place] [address] Home Phone Preferred Language en Marital Status Unknown Judaism Affiliation Unknown Race White Ethnic Group Not or Lati no Author Organization [facility] Address [address] [place] [address] Care Team Providers Care Lead Printer Name Role Phone Self, Self Primary Care Provider Unavailabl e Allergies No known active allergies Medications * This document contains information received from the source organization and may not represent a complete record from that organization. MedicationSigDispense QuantityRefillsLast FilledStart DateEnd DateStatus Albuterol 108 (90 Base) MCG/ACT Aero Soln inhaler Inhale 2 puffs.Active hydrOXYzine pamoate 25 MG capsule Take 1 capsule by mouth as needed.Active traZODone 50 MG tablet Take 1 tablet by mouth.Active FLUoxetine 20 MG capsule Indications:Moderate episode of recurrent major depressive disorderTake 2 capsules by mouth daily for 14 days. 28 capsule 4Active Active Problems ProblemNoted DateDiagnosed DateOpioid dependence in fzpwayatb31/27/2023Alcohol dependence in yxppevwso87/27/2023Stimulant use mmgytzcf89/27/2023Major depressive ebsrdhwi25/27/2023olycystic ovary uufdiegs89/27/2023 Social History Tobacco UseTypesPacks/DayYears UsedDateSmoking Tobacco: Never AssessedDepression AnswerDate RecordedPHQ-9 Total Score (Interpretation of Total Score 1-4 = Minimal depression; 5-9 = Mild depression; 10-14 = Moderate depression; 15-19 = Moderately severe depression)4CommentsUnknownSex and Gender InformationValueDate RecordedSex Assigned at BirthNot on fileLegal SexFemale 04/28/2023 9:24 AM ESTGender IdentityNot on fileSexual OrientationNot on file Plan of Treatment Health MaintenanceDue DateLast DoneCommentsHEPATITIS C VIRUS FOMGNCLSQ19/17/1985 SGSCVRL07 1984HIV SCREENING GYDAHQVCDR55/17/2000HEP B VACCINE (1 of 3 - 19+ 3-dose series)2003TDAP (ADULT)2003CERVICAL CANCER SCREENING LBKOYIXOJM72/17/2006HPV VACCINE (1 - 3-dose SCDM series)2011LIPID AWFNFZBPC74/17/2025MAMMOGRAM SCREENING DBGKIHHRQK18/17/2025OVID-19 VACCINE (2024- season)2025INFLUENZA VACCINE (#1)2025PNEUMOCOCCAL VACCINE SERIESAged OutNo longer eligible based on patient's age to complete this topic Insurance * Guarantor: Dea BurgessAccount TypeRelation to PatientDate of BirthPhone Billing AddressPersonal/YsbsuuAkzu74/17/1986 [address] [place] [address] Care Teams Team MemberRelationshipSpecialtyStart DateEnd Date Self, Self PCP - RsxjrqpNywra42/20/23
--- OUTSIDE RECORDS SUMMARY | 2025-05-06 09:12 | XMS_ITS | Patient Health Record ---
Author Organization [facility] in [place] Address [address] [place] [address] Care Team Providers Care Chief Administrative Officer Name Role Phone Omer Melchor Primary Care Provider Provider, Radiology Unavailable [phone] Shanice Hooker Unavailable [phone] Allergies Allergen (clinical drug ingredient) Drug/Non Drug Allergy documented on EMR Reaction Allergy Type Onset Date Status bandage adhesive (uncoded)UnknownAllergyActive Results Component Value Reference Range Notes FERRITIN Reviewed date:10/20/2024 09:16:34 AM Interpretation: Performing Lab: Notes/Report: FERRITIN 58.0 HEMOGLOBIN A1C (GLYCO) Reviewed date:10/20/2024 09:16:15 AM Interpretation: Performing Lab: Notes/Report: [id number]-[id number] A1C5.2HEPATITIS C VIRUS RNA (QUANT.) Reviewed date:10/27/2024 11:53:29 AM Interpretation: Performing Lab: Notes/Report: MAGNESIUM Reviewed date:10/20/2024 09:17:18 AM Interpretation: Performing Lab: Notes/Report: MG2.0LIPID PANEL (CHOL/TRIG/HDL/LDL) Reviewed date:10/20/2024 09:14:25 AM Interpretation: Performing Lab: Notes/Report: [id number] - 200 MG/RMJCJWSZHVCCQTO2644 - 150 MG/DLHDL (DIRECT)6640 - 60 MG/DLLDL (CALC)620 - 130 MG/DLVLDL (CALC)9.67 - 46 MG/DLCHOL-HDL RATIO2.10.0 - 4.4IRON AND TIBC (WITH SAT) Reviewed date:10/20/2024 09:15:51 AM Interpretation: Performing Lab: Notes/Report: CKZ609.9BKQE473.0%SAT39.5T3 FREE (T3FR) Reviewed date:10/20/2024 09:15:03 AM Interpretation: Performing Lab: Notes/Report: T3, FREE2.43T4 FREE (T4FR) Reviewed date:10/20/2024 09:15:23 AM Interpretation: Performing Lab: Notes/Report: T4, FREE0.82TSH Reviewed date:10/20/2024 09:14:47 AM Interpretation: Performing Lab: Notes/Report: TSH4.179VITAMIN D, 25 LEVEL (TOTAL) Reviewed date:10/20/2024 09:16:57 AM Interpretation: Performing Lab: Notes/Report: VIT D-25, TOT27.6HIV-1 and 2 AG and AB SCREEN, 4TH GEN Reviewed date:10/21/2024 03:26:49 PM Interpretation: Performing Lab: Notes/Report: JULIETH SCREEN with REFLEX Reviewed date:10/20/2024 03:12:03 PM Interpretation:negative Performing Lab: Notes/Report: negativeANTI ds DNAnegativeCMP (COMP MET BENJAMIN) w/eGFR CKD-EPI Reviewed date:10/20/2024 09:12:23 AM Interpretation: Performing Lab: Notes/Report: GLUCOSE (FBS)92BUN (UREA NTORGEN)17.9BIBBINWXKA2.63GFR CKD>60SODIUM (NA)138 POTASSIUM (K)3.8CHLORIDE (CL)104CARBON UEXSKEC41.7NNWOJSG4.7ALBUMIN, BLOOD3.5 PROTEIN, TOTAL (TP)7.3ALKALINE PHOSPHATE (ALP)64ALT (SGPT)61AST (SGOT)45 BILIRUBIN, TOTAL0.4MRI Lumbar Spine w/o contrast Reviewed date:10/20/2024 03:12:03 PM Interpretation: Performing Lab: Notes/Report: Reason For Referral Reason L spinal stenosis Diagnosis 1 Spinal stenosis, lum bar region with neurogenic claudication (M48.062) Referral Organization [facility] alex Referring Provider First Name Omer Referring Provider Last Name Ruiz Referring Provider Speciality [facility] icihemal Referred Provider Wisam Adamson Referred Provider Specialty Neurosurgery General Notes Omer Melchor 12:48:40 PM >please call pt for appt Referral Priority Routine Reason active Hep C Diagnosis 1 Chronic viral hepati tis C (B18.2) Referral Organization [facility] alex Referring Provider First Name Omer Referring Provider Last Name Melchor Referring Provider Speciality [facility] juani Referred Provider Jameel Ba Referred Provider Specialty Gastroentero logy General Notes Omer Melchor Lam 09:35:05 PM >please call pt for appt Referral Priority Routine Reason L DDD lumbar herni ated disc lumbar spinal stenosis Diagnosis 1 Spinal stenosis, lum bar region without neurogenic claudication (M48.061) [facility] Referring Provider First Name Omer Referring Provider Last Name Ruiz [facility] Referred Provider Jameson Shaw Referred Provider Specialty Neurosurgery General Notes Omer Melchor Lam 09:13:54 PM >please call pt for appt Referral Priority Routine Medications Medication SIG (Take, Route, Frequency, Duration) [...] Problem Status W/U Status Risk Notes Problem Acute hepatitis C (626491159) Ac newtok hepatitis C without hepatic coma (B17.10) ActiveconfirmedProblemChronic hepatitis C (444123531)Chronic viral hepatitis C (B18.2)ActiveconfirmedProblemVitamin D deficiency (50138333)Vitamin D deficiency, unspecified (E55.9)ActiveconfirmedProblemOverweight (216747180) Overweight (E66.3)ActiveconfirmedProblemObesity (161411613)Obesity, unspecified (E66.9)ActiveconfirmedProblemMild major depression, single episode (07254751) Major depressive disorder, single episode, mild (F32.0)ActiveconfirmedProblem Moderate recurrent major depression (49284798)Major depressive disorder, recurrent, moderate (F33.1)ActiveconfirmedProblemMild intermittent asthma (735139171)Mild intermittent asthma, uncomplicated (J45.20)Activeconfirmed ProblemDisplacement of lumbar intervertebral disc without myelopathy (57884965) Other intervertebral disc displacement, lumbar region (M51.26)Activeconfirmed ProblemLumbar radiculopathy (363597045)Radiculopathy, lumbar region (M54.16) ActiveconfirmedProblemChronic fatigue syndrome (disorder) (79010342)Chronic fatigue, unspecified (R53.82)ActiveconfirmedProblemNeurogenic claudication (366468540)Spinal stenosis, lumbar region with neurogenic claudication (M48.062) ActiveconfirmedProblemSpinal stenosis of lumbar region (87263786)Spinal stenosis, lumbar region without neurogenic claudication (M48.061)Activeconfirmed ProblemHistory of novel psychoactive substance misuse (situation) (265558169) Other psychoactive substance abuse, 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)ActiveconfirmedProblem Body mass index 30+ - obesity (412429875)Body mass index [BMI] 30.0-30.9, adult (Z68.30)Activeconfirmed Vital Signs Heart Rate 69 /min 04/22/2025 Respiratory Rate16 /min04/22/20253156Zhspqbgl29 %04/22/2025lood pressure diastolic 82 mm Hg04/22/20252180Jeqone85 in04/22/2025lood pressure mhvfhjap912 mm Hg 04/22/20256714Wpvoxp839.4 lbs106/22/2024BMI30.79 kg/m204/22/2025 Encounters Encounter Location Date Provider Diagnosis [address] [address] 10/20/2024 Omer Melchor Deficiency of other specified B group vitamins E53.8 ; Vitamin D deficiency, unspecified E55.9 ; Other intervertebral disc displacement, lumbar region M51.26 ; Radiculopathy, lumbar region M54.16 ; Spinal stenosis, lumbar region with neurogenic claudication M48.062 ; Overweight E66.3 ; Body mass index [BMI] 29.0-29.9, adult Z68.29 ; Burn of first degree of left foot, initial encounter T25.122A ; Other specified abnormal findings of blood chemistry R79.89 ; Chronic viral hepatitis C B18.2 ; Chronic fatigue, unspecified R53.82 and Chest pain, unspecified R07.9 [address] [place] [address] 04/22/2025 Omer Melchor Vitamin D deficiency , [...] stenosis, lumbar region without neurogenic claudication M48.[address] [address] 09/23/2024 Omer Melchor Encounter for genera l adult medical examination with abnormal findings Z00.01 ; Radiculopathy, lumbar region M54.16 ; Noninfective gastroenteritis and colitis, unspecified K52.9 ; Chest pain, unspecified R07.9 ; Dizziness and giddiness R42 ; Overweight E66.3 ; Body mass index [BMI] 29.0-29.9, adult Z68.29 ; Other psychoactive substance abuse, in remission F19.11 ; Major depressive disorder, recurrent, moderate F33.1 ; Melanocytic nevi, unspecified D22.9 and Mild intermittent asthma, uncomplicated J45.[address] [address] 09/16/20[address] [address]/19/2025Omer Melchor[address] [address]/16/2025 Omer Melchor Assessments Encounter Date Diagnosis (ICD Code) Assessment Notes Treatment Notes Treatment Clinical Notes Section Notes 09/23/2024 Encounter for genera l adult medical examination with abnormal findings (ICD-10 - Z00.01) labs rec sailaja yearly rec pap q5 years diet/exercise rec flu shot yearly rec dtap q10 years rec hpv vaccines rtc 1 year eye and dental exams yearly 09/23/2024Radiculopathy, lumbar region (ICD-10 - M54.16) set up MRI tx based on results d/w pt that she may need EMG ?PT vs injections vs surgeon vs ? 10/20/2024Deficiency of other specified B group vitamins (ICD-10 - E53.8)start folic acid and monitor lab10/20/2024Vitamin D deficiency, unspecified (ICD-10 - E55.9)start vit D and monitor labs04/22/2025Vitamin D deficiency, unspecified (ICD-10 - E55.9) monior vit D change to vit D 5000 IU daily instead of qweek per pt request 04/22/2025Deficiency of other specified B group vitamins (ICD-10 - E53.8) monitor lab stable 04/22/2025hronic fatigue, unspecified (ICD-10 - R53.82)labs - tx if abnormal 10/20/2024Other intervertebral disc displacement, lumbar region (ICD-10 - M51.26)see below09/23/2024Noninfective gastroenteritis and colitis, unspecified (ICD-10 - K52.9) rec fiber daily rec imodium prn ?bentyl 09/23/2024hest pain, unspecified (ICD-10 - R07.9) d/w pt that we can do holter - she will hold off ?anxiety 10/20/2024Radiculopathy, lumbar region (ICD-10 - M54.16)see below04/22/2025 Obesity, unspecified (ICD-10 - E66.9)diet/xjqgpwsy35/14/2025ody mass index [BMI] 30.0-30.9, adult (ICD-10 - Z68.30)10/20/2024Spinal stenosis, lumbar region with neurogenic claudication (ICD-10 - M48.062)refer to neurosurgeon for options - ?injections vs zsgonds2109/23/2024Dizziness and giddiness (ICD-10 - R42) rec holter - pt to hold off hydrate ?low BP related ?arrythmia 09/23/2024Overweight (ICD-10 - E66.3)diet/mdkpgtyu92/14/2025Overweight (ICD-10 - E66.3)diet/arhpftzn81/14/2025Major depressive disorder, single episode, mild (ICD-10 - F32.0) rec counseling rec wellbutrin - pt to hold off 04/22/2025Other specified abnormal findings of blood chemistry (ICD-10 - R79.89) monitor thyroid labs - hold on med if FT 3/4 ufhwto7610/20/2024ody mass index [BMI] 29.0-29.9, adult (ICD-10 - Z68.29)09/23/2024ody mass index [BMI] 29.0- 29.9, adult (ICD-10 - Z68.29)09/23/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, in remission (ICD-10 - F19.11) rec NA continue to abstain 10/20/2024urn of first degree of left foot, initial encounter (ICD-10 - T25.122A) call if s/s of infection almost resolved monitor 04/22/2025ute hepatitis C without hepatic coma (ICD-10 - B17.10) f/u GI as directed get copy of MRI liver at [facility] [place] 04/22/2025Encounter for screening mammogram for malignant neoplasm of breast (ICD-10 - Z12.31)10/20/2024Other specified abnormal findings of blood chemistry (ICD-10 - R79.89)d/w pt that we could do 25mcg daily of thyroid med due to elevated TSH and low normal FT 3/4 - pt to hold off and we will monitor labs in 6 reoyyv1309/23/2024Major depressive disorder, recurrent, moderate (ICD-10 - F33.1) rec counselor pt doesnt want medication 09/23/2024Melanocytic nevi, unspecified (ICD-10 - D22.9)monitor for changes 10/20/2024hronic viral hepatitis C (ICD-10 - B18.2) refer to GI for eval and tx avoid unprotected sex 04/22/2025Melanocytic nevi, unspecified (ICD-10 - D22.9)monitor as benign 04/22/2025Spinal stenosis, lumbar region without neurogenic claudication (ICD-10 - M48.061) refer for eval and tx ?PT/injections/surgery 10/20/2024hronic fatigue, unspecified (ICD-10 - R53.82) diet/exercise see if improves with B12/folate tx and Hep C tx 09/23/2024Mild intermittent asthma, uncomplicated (ICD-10 - J45.20) monitor pft d/c vaping rec flu shot yearly continue alb prn 10/20/2024hest pain, unspecified (ICD-10 - R07.9) ?etiology monitor for now ER if worsens monitor bp as she doesnt really know if its low when she has these episodes 09/23/2024Otherlabs for Hep C - refer to GI if yswrxvcy65/14/2025Otherpt to make appt with dr hooker for pap Plan Of Treatment Pending Test Test Name Order Date HEPATITIS PANEL, ACUTE (HAV-M, HBC-M, HB SAG, HCV) 09/23/2024 DHEA-S 04/22/2025 TESTOSTERONE, FREE (INCLUDES FREE,TOTAL and FTI) 04/22/2025 FSH, LH, and PROLACTIN 04/22/2025 PROGESTERONE 04/22/2025 SEX HORMONE BINDING GLOBULIN 04/22/2025 TSH 04/22/2025 VITAMIN D, 25 LEVEL (TOTAL) 04/22/2025 CORTISOL, BLOOD 04/22/2025 ESTRADIOL (E2)* 04/22/2025 VITAMIN B12 LEVEL AND FOLATE (FOLIC ACID ) 04/22/2025 VITAMIN B12 LEVEL AND FOLATE (FOLIC ACID ) 09/23/2024 MAMM SCREEN BILAT [place] 3D GLOBAL* 2024 CBC WITH DIFF 09/23/2024 Next Appt Details Provider Name:Shanice llamas, 05/10/2025 10:15:00 AM, [address] [place] [employer], [place], [address], Insurance Providers Payer Name Payer Address Payer Phone Subscriber Number Group Number Insured Name Patient Relationship to Insured Coverage Start Date Coverage End Date [employer] PPO PLUS LOCAL PLAN [address] [place] [address] [id number] Danie Wright - patient is the [id number] 2024 Medical (General) History Medical History History ICD Code depression anemiaasthmapcoshep Ch/o ETOH abuseh/o drug abusefolic acid deficiencyL spinal stenosisvit D defSurgical History Surgery Date(Month/Year) appendectomy 1997 tonsillectomy Hospitalization History Reason Date(Month/Year) ~2021 for [facility]
--- NOTE | 2025-05-06 09:40 | MM_ITS ---
Patient Name: DEA BURGESS MR#: [id number] : 1985 Exam Date: 05/06/2025 Ordering Doctor: DR CARON LIRIANO D.O. RADIOLOGY REPORT PROCEDURE: MM TOMOSYNTHESIS SCREENING BI COMPARISON: None. INDICATIONS: Screening Calculator Name NCI Breast Cancer Risk Assessment Tool 5 Year Breast Cancer Risk 0.60% Lifetime Breast Cancer Risk 10.20% Personal Breast Cancer No Personal Ovarian Cancer No Treatments None Family Cancers Aunt-maternal with breast cancer at age 50. LOCATION: [facility] BREAST COMPOSITION: There are scattered areas of fibroglandular density. FINDINGS: DIAGNOSTIC CATEGORY 1--NEGATIVE. RIGHT BREAST: No significant suspicious finding. LEFT BREAST: No significant suspicious finding. RECOMMENDATIONS: ROUTINE MAMMOGRAM AND CLINICAL EVALUATION IN 12 MONTHS. Dictated by: Giuliano Alfred DO on 05/06/2025 at 10:50 Approved by: Giuliano Alfred DO on 05/06/2025 at 10:56
== END 2025-05-06 09:09 | disposition home or self-care (01) ==
LOC: MAMMO 09:08
PROVIDERS: PCP Family Medicine; Visit Provider Family Medicine
DX: Z12.31 Encounter for screening mammogram for malignant neoplasm of breast (principal); Z80.3 Family history of malignant neoplasm of breast
CPT/HCPCS: 77063; 77067